=== PATIENT | male | born 1950 | race Caucasian/White ===

== ENCOUNTER 2020-02-02 12:09 | Outpatient (CLI) | payer SELFPAY ==
[2020-02-02 14:29] LABS: Bilirubin Small (Negative); Blood, Urine Negative (Negative); Clarity Slightly Cloudy (Clear); Glucose, Urine (Dipstick) Negative (Negative); Leukocyte Large (Negative); Nitrite Positive (Negative); Protein, Urine (Dipstick) 30 mg/dL (Neg-Trace)
[2020-02-02 14:46] LABS: RBC/HPF None Seen HPF (0-3)
[2020-02-02 14:47] LABS: Bacteria/HPF 3+ HPF (None Seen); Squamous Epithelial 0-3 HPF (0-3)
[2020-02-02 21:52] LABS: Follow-up Result - Urinalysis REPORT FAXED; Follow-up UA Comp? YES
== END 2020-02-02 12:10 | disposition home or self-care (01) ==
LOC: NAV LABSP 12:09
PROVIDERS: ATTEND Family Medicine
DX: N40.1 Benign prostatic hyperplasia with lower urinary tract symptoms (principal); R33.9 Retention of urine, unspecified
CPT/HCPCS: 81001; 87086